=== PATIENT | female | born 1955 ===

== ENCOUNTER 2021-06-23 17:49 | Inpatient (IN) | payer MEDICARE, OTHER ==
[~2021-06-23] VITALS: Ht 157.5 cm; Wt 61.4 kg
[2021-06-23 21:22] LABS: RED BLOOD COUNT 5.04 M/UL (4.00-5.10); WHITE BLOOD COUNT 10.8 K/UL (4.5-11.0)
[2021-06-24 05:04] LABS: HEMOGLOBIN 14.6 gm/dl (12.3-15.3); RED BLOOD COUNT 4.86 M/UL (4.00-5.10); WHITE BLOOD COUNT 10.9 K/UL (4.5-11.0)
[2021-06-24] MEDS ORDERED: SYMBICORT 80-41 INHA INH (09:51)
[2021-06-24] MEDS ORDERED: INVEGA6 MG PO (09:52)
[2021-06-24] MEDS ORDERED: SERTRALINE HCL50 MG PO (09:52)
[2021-06-24] MEDS ORDERED: LISINOPRIL10 MG PO (09:52)
[2021-06-24] MEDS ORDERED: EPINEPHRIN0.3 MG/0.3 INJ (09:53)
[2021-06-26] MEDS ORDERED: ATORVASTATIN CA10 MG PO (10:47)
== END 2021-06-26 13:55 | disposition home or self-care (01) | DRG 280 ==
LOC: PROG CARE 17:49
PROVIDERS: Internal Medicine; ADMIT Internal Medicine
PROC: B24BZZZ Ultrasonography of Heart with Aorta (ICD-10-PCS; principal; 2021-06-25)
PROC: B2111ZZ Fluoroscopy of Multiple Coronary Arteries using Low Osmolar Contrast (ICD-10-PCS; 2021-06-25)
PROC: B2161ZZ Fluoroscopy of Right and Left Heart using Low Osmolar Contrast (ICD-10-PCS; 2021-06-25)
PROC: B3101ZZ Fluoroscopy of Thoracic Aorta using Low Osmolar Contrast (ICD-10-PCS; 2021-06-25)
DX: I21.4 Non-ST elevation (NSTEMI) myocardial infarction (principal); R57.1 Hypovolemic shock; J18.9 Pneumonia, unspecified organism; Z20.822 Contact with and (suspected) exposure to COVID-19; J44.9 Chronic obstructive pulmonary disease, unspecified; E11.9 Type 2 diabetes mellitus without complications; F17.210 Nicotine dependence, cigarettes, uncomplicated; T50.995A Adverse effect of other drugs, medicaments and biological substances, initial encounter; F20.9 Schizophrenia, unspecified; I95.2 Hypotension due to drugs; I08.3 Combined rheumatic disorders of mitral, aortic and tricuspid valves; I10 Essential (primary) hypertension; F31.9 Bipolar disorder, unspecified; J45.909 Unspecified asthma, uncomplicated; Z91.040 Latex allergy status; Z88.5 Allergy status to narcotic agent; Z88.0 Allergy status to penicillin; Z88.2 Allergy status to sulfonamides; Z91.018 Allergy to other foods; Z90.49 Acquired absence of other specified parts of digestive tract; Z91.013 Allergy to seafood
CPT/HCPCS: ECHO; 36415; 71045; 80048; 80061; 82550; 82553; 82962; 84439; 84443; 84484; 85025; 85610; 85730; 93005; 93306; 94640; 94664; 94760; 99152; 99153; C1769; C1887; C1894; J1250; J1644; J2250; J2370; J7030; J7040; Q9965